=== PATIENT | female | born 1955 | race Caucasian/White ===

== ENCOUNTER 2020-05-23 14:15 | Inpatient (IN) | payer MEDICARE ==
[~2020-05-23] VITALS: Ht 175.3 cm; Wt 106.8 kg
[2020-05-23] MEDS ORDERED: TYLENOL325 M1 PO (15:23)
[2020-05-23] MEDS ORDERED: BISACODYL10 MG RECTAL (15:25)
[2020-05-23] MEDS ORDERED: ENOXAPARIN40 MG/0.1 SUBQ (15:26)
[2020-05-23] MEDS ORDERED: GABAPENTIN100 MG PO (15:27)
[2020-05-23] MEDS ORDERED: HYDROCORTISONE30 GM TOP (15:30)
[2020-05-23] MEDS ORDERED: HYDROXYZINE HCL25 M2 PO (15:32)
[2020-05-23] MEDS ORDERED: METHOCARBAMOL750 MG PO (15:33)
[2020-05-23] MEDS ORDERED: OXYBUTYNIN 5 MG5 M2 PO (15:34)
[2020-05-23] MEDS ORDERED: MIRALAX119 GM PO (15:35)
[2020-05-23] MEDS ORDERED: SENNA PLUS TAB1 EACH PO (15:37)
[2020-05-23] MEDS ORDERED: VITAMIN C500 M2 PO (15:39)
[2020-05-23] MEDS ORDERED: VITAMIN D3250 MC2 PO (15:42)
[2020-05-23] MEDS ORDERED: LISINOPRIL-HCT1 EAC1 PO (15:43)
[2020-05-23] MEDS ORDERED: MELOXICAM15 MG PO (15:44)
[2020-05-23 19:20] VITALS: BP 131/34
[2020-05-24 08:15] VITALS: BP 137/68
[2020-05-24 19:47] VITALS: BP 122/62
[2020-05-25 07:07] LABS: HEMATOCRIT 24.9 % (37.0-47.0); HEMOGLOBIN 8.3 gm/dL (12.0-15.0); MCHC 33.4 g/dL (28.0-37.0); MPV 5.9 fl. (7.2-11.1); RBC 2.77 mil/uL (4.20-5.00); RDW-CV 14.4 % (10.5-14.5); WBC 8.6 thou/uL (4.0-11.0)
[2020-05-25 07:08] LABS: CALCIUM 9.5 mg/dL (8.5-10.1); POTASSIUM 4.3 mmol/L (3.5-5.1)
[2020-05-25 08:15] VITALS: BP 114/54
[2020-05-25 20:00] VITALS: BP 129/69
[2020-05-26 08:00] VITALS: BP 128/63
[2020-05-26 19:00] VITALS: BP 110/51
[2020-05-27 08:00] VITALS: BP 128/67
[2020-05-27 19:00] VITALS: BP 124/70
[2020-05-28 08:00] VITALS: BP 110/52
[2020-05-28 19:00] VITALS: BP 116/71
[2020-05-29 08:00] VITALS: BP 131/65
[2020-05-29 20:34] VITALS: BP 119/50
[2020-05-30 08:00] VITALS: BP 102/48
[2020-05-30 20:29] VITALS: BP 154/64
[2020-05-31 07:30] VITALS: BP 129/57
[2020-05-31 20:21] VITALS: BP 125/53
[2020-06-01 08:20] VITALS: BP 125/60
[2020-06-01 20:04] VITALS: BP 104/50
[2020-06-02 09:30] VITALS: BP 151/76
[2020-06-02 19:00] VITALS: BP 117/45
[2020-06-03 09:00] VITALS: BP 129/71
[2020-06-03 19:00] VITALS: BP 125/65
[2020-06-04 08:00] VITALS: BP 123/45
[2020-06-04] MEDS ORDERED: BACLOFEN 10MG T10 MG PO (13:33)
[2020-06-04] MEDS ORDERED: BACLOFEN5 MG PO (13:34)
[2020-06-04 14:02] VITALS: BP 123/45
[2020-06-04 14:21] VITALS: BP 123/45
== END 2020-06-04 14:45 | disposition home or self-care (01) | DRG 536 ==
LOC: M.REH 14:15
PROVIDERS: ADMIT Physical Medicine & Rehabilitation; ATTEND Physical Medicine & Rehabilitation
DX: S72.051A Unspecified fracture of head of right femur, initial encounter for closed fracture (principal); S52.502A Unspecified fracture of the lower end of left radius, initial encounter for closed fracture; S52.611A Displaced fracture of right ulna styloid process, initial encounter for closed fracture; I10 Essential (primary) hypertension; E78.5 Hyperlipidemia, unspecified; R53.81 Other malaise; D64.9 Anemia, unspecified; M17.11 Unilateral primary osteoarthritis, right knee; E66.01 Morbid (severe) obesity due to excess calories; G62.9 Polyneuropathy, unspecified; L40.9 Psoriasis, unspecified; W18.39XA Other fall on same level, initial encounter; Z91.81 History of falling; Y93.89 Activity, other specified; Y92.89 Other specified places as the place of occurrence of the external cause; Y99.8 Other external cause status; Z68.34 Body mass index [BMI] 34.0-34.9, adult